=== PATIENT | female | born 1955 | race Two or more races ===

== ENCOUNTER 2018-09-26 09:37 | Emergency (ER) | payer MEDICARE ==
[~2018-09-26] VITALS: Ht 152.4 cm; Wt 68.9 kg
[2018-09-26] MEDS ORDERED: ALBUTEROL/IPRATROPIUM 2.5MG/0.5MG, 3 ML NPPB ONE (10:30)
[2018-09-26] MEDS ORDERED: ACETAMINOPHEN 500 MG TABLET PO ONE (10:30)
[2018-09-26] MEDS ORDERED: ALBUTEROL/IPRATROPIUM 2.5MG/0.5MG, 3 ML ONE (10:32)
[2018-09-26] MEDS ORDERED: ACETAMINOPHEN 500 MG TABLET ONE (10:35)
--- NOTE | 2018-09-26 10:45 | NUR ---
ASSUMED CARE OF PT. PT MEDICATED PER Sep.18 RIGHTS VERIFIED PRIOR.
[2018-09-26 10:55] LABS: RAPID INFLUENZA A POSITIVE (Negative); RAPID INFLUENZA B Negative (Negative)
[2018-09-26 11:23] VITALS: BP 121/87
== END 2018-09-26 11:26 | disposition home or self-care (01) ==
LOC: ED 11:20
DX: J10.1 Influenza due to other identified influenza virus with other respiratory manifestations (principal); J98.01 Acute bronchospasm
CPT/HCPCS: 71045; 87400; 93005; 94640; 99284; J7620

== ENCOUNTER → 2020-05-13 | Outpatient (CLI) | payer MEDICARE | END | disposition home or self-care (01) | LOC: CFH 13:15 | PROVIDERS: ATTEND Family Medicine | DX: Z12.2 Encounter for screening for malignant neoplasm of respiratory organs (principal); F17.210 Nicotine dependence, cigarettes, uncomplicated; J84.10 Pulmonary fibrosis, unspecified; K76.0 Fatty (change of) liver, not elsewhere classified; K44.9 Diaphragmatic hernia without obstruction or gangrene | CPT/HCPCS: G0297 ==